=== PATIENT | male | born 2005 | race Caucasian/White ===

== ENCOUNTER 2023-12-13 14:21 | Outpatient (CLI) | payer OTHER, SELFPAY ==
--- NOTE | ~2023-12-13 | US_ITS ---
EXAMINATION: US scrotum doppler DATE: 12/13/2023 14:54 INDICATION: Right-sided testicular pain TECHNIQUE: Sonographic evaluation of the scrotum was performed assessing grayscale appearance and col or Doppler flow. Spectral Doppler evaluation was also performed. COMPARISON: None. FINDINGS: RIGHT TESTICLE: The right testicle measures 3.5 x 2.7 x 2.1 cm. Arterial and venous flow are present. RIGHT EPIDIDYMIS: The right epididymis measures 7.1 mm. LEFT TESTICLE: The left testicle measures 3.4 x 2.8 x 2.2 cm. Arterial and venous flow are demonstrated. LEFT EPIDIDYMIS: The left epididymis measures 7 mm. IMPRESSION: Unremarkable sonographic evaluation of the scrotum, as detailed above. Reviewed, dictated and finalized at location A.
== END 2023-12-13 14:22 | disposition home or self-care (01) ==
PROVIDERS: PCP Physician Assistant; Visit Provider Registered Nurse
DX: N50.811 Right testicular pain (principal); M79.89 Other specified soft tissue disorders
CPT/HCPCS: 76870; 93976

== ENCOUNTER 2023-12-22 07:36 | Outpatient (CLI) | payer OTHER, SELFPAY ==
--- NOTE | ~2023-12-22 | MR_ITS ---
MRI of the left forearm CLINICAL HISTORY: Soft tissue masses TECHNIQUE: Sagittal T1-weighted and STIR images, coronal T1-weighted and STIR images, axial T1-weight ed and STIR images were performed. FINDINGS: Bone marrow signals are unremarkable. No marrow edema, fracture, or evidence for osteitis. No periosteal reaction. No articular abnormality or joint effusion seen. Visualized musculature demonstrates normal signal. Visually tendons appear intact. No soft tissue mas s or fluid collection evident. Subcutaneous soft tissues are unremarkable. IMPRESSION: Unremarkable exam. No soft tissue mass or fluid collection evident. Reviewed, dictated and finalized at location . [employer]
== END 2023-12-22 07:37 | disposition home or self-care (01) ==
LOC: CHSIMG 07:36
PROVIDERS: PCP Family Medicine; Visit Provider Registered Nurse
DX: M79.89 Other specified soft tissue disorders (principal)
CPT/HCPCS: 73218